=== PATIENT | female | born 1950 | race Caucasian/White ===

== ENCOUNTER → 2017-01-07 | Outpatient (CLI) | payer MEDICARE, BC ==
[~2017-01-07] MED LIST: CENTRUM SILVER1 TAB PO; CITRACAL + D CA1 TAB PO; LUTEIN6 MG PO; VITAMINE200 PO
== END ==
LOC: MC.RAD 13:12
DX: Z12.31 Encounter for screening mammogram for malignant neoplasm of breast (principal)

== ENCOUNTER → 2018-02-02 | Outpatient (CLI) | payer MEDICARE, BC | LOC: MC.RAD 08:44 | DX: Z12.31 Encounter for screening mammogram for malignant neoplasm of breast (principal) ==

== ENCOUNTER → 2019-02-24 | Outpatient (CLI) | payer MEDICARE, BC | LOC: MC.RAD 08:15 | DX: Z12.31 Encounter for screening mammogram for malignant neoplasm of breast (principal) ==

== ENCOUNTER → 2020-02-27 | Outpatient (CLI) | payer MEDICARE, BC | LOC: MC.RAD 13:42 | DX: Z12.31 Encounter for screening mammogram for malignant neoplasm of breast (principal); Z78.0 Asymptomatic menopausal state ==

== ENCOUNTER 2021-02-15 06:56 | Day surgery (SDC) | payer MEDICARE, BC ==
[~2021-02-15] VITALS: Ht 160 cm; Wt 50.6 kg
[2021-02-15] MEDS ORDERED: LIPITOR 10MG10 MG PO (07:14)
[2021-02-15] MEDS ORDERED: PRINIVIL5 MG PO (07:14)
[2021-02-15] MEDS ORDERED: FOSAMAX 70MG TA70 MG PO (07:15)
[2021-02-15 07:31] VITALS: BP 155/86; PULSE 80; TEMP 97.1
[2021-02-15 08:40] VITALS: BP 118/75; PULSE 65
[2021-02-15 08:55] VITALS: BP 127/63; PULSE 69; TEMP 97.6
[2021-02-15 09:10] VITALS: BP 133/64; PULSE 69
--- NOTE | 2021-02-15 09:58 | NUR ---
0840- Pt returns from endo procedure via cart to [facility]. Pt ambulates from cart to recliner with RN assist. Monitors on and alarms set. Call light within reach. Pt alert and oriented. Pt requests orange juice and muffin. Pt denies any pain or nausea. 0855- Pt taking food and drink well. No complications noted. 0910 - IV discontinued with no complications. Patient denies any needs and request to be discharged. 0948- Dr in to speak with patient. Discharge instructions given to pt. All questions answered to patient and 's satisfaction. Handed to pt discharge information. 0958- Pt transferred out of the hospital via wheelchair, to private vehicle driven by .
== END 2021-02-15 09:58 | disposition home or self-care (01) ==
LOC: SDCO 06:56
DX: Z12.11 Encounter for screening for malignant neoplasm of colon (principal); Z86.010 Personal history of colon polyps; K64.0 First degree hemorrhoids; I10 Essential (primary) hypertension; E78.5 Hyperlipidemia, unspecified
CPT/HCPCS: J2704; J7030

== ENCOUNTER → 2021-02-27 | Outpatient (CLI) | payer MEDICARE, BC ==
[~2021-02-27] MED LIST changes: +FOSAMAX 70MG TA70 MG PO; +LIPITOR 10MG10 MG PO; +PRINIVIL5 MG PO
== END ==
LOC: MC.RAD 10:25
DX: Z12.31 Encounter for screening mammogram for malignant neoplasm of breast (principal)